=== PATIENT | male | born 1945 | race Caucasian/White ===

== ENCOUNTER 2022-10-22 07:00 | Outpatient (CLI) | payer MEDICARE, BC ==
--- NOTE | 2022-10-22 12:58 | XRAY Report ---
PROCEDURE: Chest 2 View X-Ray INDICATIONS: COVID+ TECHNIQUE: 2 views of the chest were acquired. COMPARISON: None. FINDINGS: Surgical changes and devices: Partially seen left humeral hardware. Lungs and pleura: Mild peribronchial thickening. No airspace consolidation or pleural effusion. Mediastinum: Mediastinal contours appear normal. Heart size is normal. Bones and chest wall: No suspicious bony lesions. Overlying soft tissues appear unremarkable. IMPRESSION: Mild peribronchial thickening, possibly atypical infection. No airspace consolidation. No pleural eff usions. Consider future imaging surveillance to assess for resolution. Reviewed by: Smith Zarate MD on 10/22/2022 12:57 PM PDT Approved by: Smith Zarate MD on 10/22/2022 12:57 PM PDT Station ID: [id number]
[2022-10-22 14:48] LABS: BASOPHILS % (AUTO) 0.4 %; EOSINOPHILS % (AUTO) 0.3 %; HCT - HEMATOCRIT 42.5 % (42.0-52.0); HGB - HEMOGLOBIN 13.4 g/dL (14.0-18.0); LYMPHOCYTES # (AUTO) 0.3 10^3/uL (1.5-3.5); LYMPHOCYTES % (AUTO) 4.6 %; MEAN CORPUSCULAR HEMOGLOBIN 29.9 pg (27.0-31.0); MEAN CORPUSCULAR HGB CONC 31.5 g/dL (32.0-36.0); MEAN CORPUSCULAR VOLUME 94.9 fL (80.0-94.0); MEAN PLATELET VOLUME 10.1 fL (7.4-11.4); MONOCYTES # (AUTO) 1.4 10^3/uL (0.0-1.0); MONOCYTES % (AUTO) 19.5 %; NEUTROPHILS # (AUTO) 5.4 10^3/uL (1.5-6.6); NEUTROPHILS % (AUTO) 74.1 %; PLT - PLATELET COUNT 199 10^3/uL (130-450); RED BLOOD COUNT 4.48 10^6/uL (4.70-6.10); RED CELL DISTRIBUTION WIDTH 13.7 % (12.0-15.0); WHITE BLOOD COUNT 7.2 x10^3/uL (4.8-10.8)
[2022-10-22 15:15] LABS: ALBUMIN 4.2 g/dL (3.2-5.5); ALBUMIN/GLOBULIN RATIO 1.5 (1.0-2.2); BILIRUBIN,TOTAL 0.6 mg/dL (0.2-1.0); CALCIUM 9.4 mg/dL (8.5-10.3); POTASSIUM 3.6 mmol/L (3.5-4.5)
== END 2022-10-22 23:59 | disposition home or self-care (01) ==
LOC: DI.S 07:00
PROVIDERS: ATTEND Physician Assistant
DX: U07.1 COVID-19 (principal)
CPT/HCPCS: 36415; 80053; 85025

== ENCOUNTER 2022-10-28 00:21 | Emergency (ER) | payer MEDICARE, BC ==
[2022-10-28] MEDS ORDERED: SODIUM CHLORIDE 0.9% 500 ML IV STA (00:31)
--- OUTSIDE RECORDS SUMMARY | 2022-10-28 00:50 | EXTERNAL MEDICAL SUMMARY RPT | Continuity of Care Document ---
Author Name Unknown Address [address] [place] [address] Phone Organization [facility] Address [address] [place] [address] Phone Care Team Providers Care Muck Farmer Name Role Phone Unavailable Unavailable Unavailable Anita Chance Unavailable Unavailable Supa Patient Registrar, Yamilka Unavailable Unavailable Stas Canseco, Ale Unavailable Unavailable Medications date description facility 2022-10-22 00:00 nirmatrelvir[facility]ritonavir [facility] 2022-10-22 00:00 nirmatrelvir-ritonavir [facility] 2022-10-22 00:00 nirmatrelvir-ritonavir [facility] 2022-10-22 00:00 famotidine [facility] 2022-10-22 00:00 famotidine [facility] 2022-10-23 00:00 famotidine [facility] 2022-10-25 00:00 famotidine [facility] 2022-10-22 00:00 tamsulosin [facility] 2022-10-22 00:00 tamsulosin [facility] 2022-10-23 00:00 tamsulosin [facility] 2022-10-25 00:00 tamsulosin [facility] 2022-10-22 00:00 levetiracetam [facility] 2022-10-22 00:00 levetiracetam [facility] 2022-10-23 00:00 levetiracetam [facility] 2022-10-25 00:00 levetiracetam [facility] 2022-10-22 00:00 levothyroxine [facility] 2022-10-22 00:00 levothyroxine [facility] 2022-10-23 00:00 levothyroxine [facility] 2022-10-25 00:00 levothyroxine [facility] 2022-10-22 00:00 azithromycin [facility] 2022-10-22 00:00 azithromycin [facility] 2022-10-22 00:00 azithromycin [facility] 2022-10-22 00:00 calcium carbonate-vitamin d3 [facility] 2022-10-22 00:00 calcium carbonate-vitamin d3 [facility] 2022-10-23 00:00 calcium carbonate-vitamin d3 [facility] 2022-10-25 00:00 calcium carbonate-vitamin d3 [facility] 2022-10-22 00:00 levothyroxine [facility] 2022-10-22 00:00 levothyroxine [facility] 2022-10-23 00:00 levothyroxine [facility] 2022-10-25 00:00 levothyroxine [facility] 2022-10-22 00:00 nirmatrelvir-ritonavir [facility] 2022-10-22 00:00 nirmatrelvir-ritonavir [facility] 2022-10-22 00:00 nirmatrelvir-ritonavir [facility] 2022-10-22 00:00 lacosamide [facility] 2022-10-22 00:00 lacosamide [facility] 2022-10-23 00:00 lacosamide [facility] 2022-10-25 00:00 lacosamide [facility] 2022-10-22 00:00 tamsulosin [facility] 2022-10-22 00:00 tamsulosin [facility] 2022-10-23 00:00 tamsulosin [facility] 2022-10-25 00:00 tamsulosin [facility] 2022-10-22 00:00 CEFTRIAXONE SODIUM [facility] 2022-10-22 00:00 CEFTRIAXONE SODIUM [facility] 2022-10-22 00:00 CEFTRIAXONE SODIUM [facility] 2022-10-22 00:00 nirmatrelvir-ritonavir [facility] 2022-10-22 00:00 nirmatrelvir-ritonavir [facility] 2022-10-22 00:00 nirmatrelvir-ritonavir [facility] 2022-10-22 00:00 calcium carbonate-vitamin d3 [facility] 2022-10-22 00:00 calcium carbonate-vitamin d3 [facility] 2022-10-23 00:00 calcium carbonate-vitamin d3 [facility] 2022-10-25 00:00 calcium carbonate-vitamin d3 [facility] 2022-10-22 00:00 nirmatrelvir-ritonavir [facility] 2022-10-22 00:00 nirmatrelvir-ritonavir [facility] 2022-10-22 00:00 nirmatrelvir-ritonavir [facility] 2022-10-22 00:00 famotidine [facility] 2022-10-22 00:00 famotidine [facility] 2022-10-23 00:00 famotidine [facility] 2022-10-25 00:00 famotidine [facility] 2022-10-22 00:00 lacosamide [facility] 2022-10-22 00:00 lacosamide [facility] 2022-10-23 00:00 lacosamide [facility] 2022-10-25 00:00 lacosamide [facility] 2022-10-22 00:00 levothyroxine [facility] 2022-10-22 00:00 levothyroxine [facility] 2022-10-23 00:00 levothyroxine [facility] 2022-10-25 00:00 levothyroxine [facility] 2022-10-22 00:00 azithromycin [facility] 2022-10-22 00:00 azithromycin [facility] 2022-10-22 00:00 azithromycin [facility] 2022-10-22 00:00 famotidine [facility] 2022-10-22 00:00 famotidine [facility] 2022-10-23 00:00 famotidine [facility] 2022-10-25 00:00 famotidine [facility] 2022-10-22 00:00 levetiracetam [facility] 2022-10-22 00:00 levetiracetam [facility] 2022-10-23 00:00 levetiracetam [facility] 2022-10-25 00:00 levetiracetam [facility] 2022-10-22 00:00 pantoprazole [facility] 2022-10-22 00:00 pantoprazole [facility] 2022-10-23 00:00 pantoprazole [facility] 2022-10-25 00:00 pantoprazole [facility] 2022-10-22 00:00 famotidine [facility] 2022-10-22 00:00 famotidine [facility] 2022-10-23 00:00 famotidine [facility] 2022-10-25 00:00 famotidine [facility] 2022-10-22 00:00 pantoprazole [facility] 2022-10-22 00:00 pantoprazole [facility] 2022-10-23 00:00 pantoprazole [facility] 2022-10-25 00:00 pantoprazole [facility] 2022-10-22 00:00 azithromycin [facility] 2022-10-22 00:00 azithromycin [facility] 2022-10-22 00:00 azithromycin [facility] 2022-10-22 00:00 pantoprazole [facility] 2022-10-22 00:00 pantoprazole [facility] 2022-10-23 00:00 pantoprazole [facility] 2022-10-25 00:00 pantoprazole [facility] 2022-10-22 00:00 tamsulosin [facility] 2022-10-22 00:00 tamsulosin [facility] 2022-10-23 00:00 tamsulosin [facility] 2022-10-25 00:00 tamsulosin [facility] 2022-10-22 00:00 azithromycin [facility] 2022-10-22 00:00 azithromycin [facility] 2022-10-22 00:00 azithromycin [facility] 2022-10-22 00:00 pantoprazole [facility] 2022-10-22 00:00 pantoprazole [facility] 2022-10-23 00:00 pantoprazole [facility] 2022-10-25 00:00 pantoprazole [facility] 2022-10-22 00:00 levetiracetam [facility] 2022-10-22 00:00 levetiracetam [facility] 2022-10-23 00:00 levetiracetam [facility] 2022-10-25 00:00 levetiracetam [facility] 2022-10-22 00:00 lacosamide [facility] 2022-10-22 00:00 lacosamide [facility] 2022-10-23 00:00 lacosamide [facility] 2022-10-25 00:00 lacosamide [facility] 2022-10-22 00:00 levetiracetam [facility] 2022-10-22 00:00 levetiracetam [facility] 2022-10-23 00:00 levetiracetam [facility] 2022-10-25 00:00 levetiracetam [facility] 2022-10-22 00:00 calcium carbonate-vitamin d3 [facility] 2022-10-22 00:00 calcium carbonate-vitamin d3 [facility] 2022-10-23 00:00 calcium carbonate-vitamin d3 [facility] 2022-10-25 00:00 calcium carbonate-vitamin d3 [facility] 2022-10-22 00:00 lacosamide [facility] 2022-10-22 00:00 lacosamide [facility] 2022-10-23 00:00 lacosamide [facility] 2022-10-25 00:00 lacosamide [facility] 2022-10-22 00:00 tamsulosin [facility] 2022-10-22 00:00 tamsulosin [facility] 2022-10-23 00:00 tamsulosin [facility] 2022-10-25 00:00 tamsulosin [facility] 2022-10-22 00:00 levothyroxine [facility] 2022-10-22 00:00 levothyroxine [facility] 2022-10-23 00:00 levothyroxine [facility] 2022-10-25 00:00 levothyroxine [facility] Problems date description facility 2022-10-22 00:00 Other specified viral infection [facility] 2022-10-22 00:00 Other specified viral infection [facility] 2022-10-22 00:00 Other specified viral infection [facility] 2022-10-22 00:00 Atypical pneumonia [facility] 2022-10-22 00:00 Atypical pneumonia [facility] 2022-10-22 00:00 Atypical pneumonia [facility] 2022-10-22 00:00 Cough [facility] 2022-10-22 00:00 Cough [facility] 2022-10-22 00:00 Cough [facility] 2022-10-22 00:00 Pneumonia, unspecified organism [facility] 2022-10-22 00:00 Pneumonia, unspecified organism [facility] 2022-10-22 00:00 Pneumonia, unspecified organism [facility] 2022-10-22 00:00 Acute cough [facility] 2022-10-22 00:00 Acute cough [facility] 2022-10-22 00:00 Acute cough [facility] 2022-10-22 00:00 COVID-19 [facility] 2022-10-22 00:00 COVID-19 [facility] 2022-10-22 00:00 COVID-19 [facility] Procedures date description facility 2022-10-22 00:00 Visit Code Hold [facility] 2022-10-22 00:00 Visit Code Hold [facility] 2022-10-22 00:00 Visit Code Hold [facility] 2022-10-22 00:00 COMPREHENSIVE METABOLIC PANEL W [facility] 2022-10-22 00:00 COMPREHENSIVE METABOLIC PANEL [facility] 2022-10-22 00:00 COMPREHENSIVE METABOLIC PANEL [facility] 2022-10-22 00:00 CBC W/Diff/Plt [facility] 2022-10-22 00:00 CBC W/Diff/Plt [facility] 2022-10-22 00:00 CBC W/Diff/Plt [facility] 2022-10-22 00:00 Rocephin 1gm Inj Solr [facility] 2022-10-22 00:00 Rocephin 1gm Inj Solr [facility] 2022-10-22 00:00 Rocephin 1gm Inj Solr [facility] Results/Labs test date facility value unit notes Social History date description facility 2022-10-22 00:00 Never smoker [facility] 2022-10-22 00:00 Never smoker [facility] 2022-10-22 00:00 Never smoker [facility] Vital Signs date measurement value units 2022-10-22 00:00 BMI 27.57 kg/m2 2022-10-22 00:00 BP_diastolic 67 mmHg 2022-10-22 00:00 BP_systolic 116 mmHg 2022-10-22 00:00 heart_rate 74 /min 2022-10-22 00:00 height_metric 190.5 cm 2022-10-22 00:00 height_standard 75 in 2022-10-22 00:00 respiration_rate 18 /min 2022-10-22 00:00 temperature_metric 37.72 C 2022-10-22 00:00 temperature_standard 99.9 F 2022-10-22 00:00 weight_metric 99.7 kg 2022-10-22 00:00 weight_standard 219.8 lb
[2022-10-28 00:55] LABS: BASOPHILS % (AUTO) 0.2 %; EOSINOPHILS % (AUTO) 0.5 %; HCT - HEMATOCRIT 41.6 % (42.0-52.0); HGB - HEMOGLOBIN 13.5 g/dL (14.0-18.0); LYMPHOCYTES # (AUTO) 1.2 10^3/uL (1.5-3.5); LYMPHOCYTES % (AUTO) 21.5 %; MEAN CORPUSCULAR HEMOGLOBIN 30.1 pg (27.0-31.0); MEAN CORPUSCULAR HGB CONC 32.5 g/dL (32.0-36.0); MEAN CORPUSCULAR VOLUME 92.7 fL (80.0-94.0); MEAN PLATELET VOLUME 9.2 fL (7.4-11.4); MONOCYTES # (AUTO) 0.8 10^3/uL (0.0-1.0); MONOCYTES % (AUTO) 13.2 %; NEUTROPHILS # (AUTO) 3.7 10^3/uL (1.5-6.6); NEUTROPHILS % (AUTO) 63.6 %; PLT - PLATELET COUNT 145 10^3/uL (130-450); RED BLOOD COUNT 4.49 10^6/uL (4.70-6.10); WHITE BLOOD COUNT 5.8 x10^3/uL (4.8-10.8)
[2022-10-28 01:09] LABS: ALBUMIN/GLOBULIN RATIO 1.5 (1.0-2.2); BILIRUBIN,TOTAL 0.4 mg/dL (0.2-1.0); CREATININE 1.1 mg/dL (0.6-1.3); POTASSIUM 3.6 mmol/L (3.5-4.5); TOTAL PROTEIN 6.6 g/dL (6.4-8.9)
[2022-10-28 01:21] LABS: BILIRUBIN,URINE NEGATIVE (NEGATIVE); GLUCOSE, URINE (UA) NEGATIVE (NEGATIVE); KETONES,URINE (UA) TRACE mg/dL (NEGATIVE); LEUKOCYTE ESTERASE, URINE TRACE (NEGATIVE); NITRITE,URINE NEGATIVE (NEGATIVE); OCCULT BLOOD,URINE TRACE-INTA (NEGATIVE); PROTEIN,URINE 30 mg/dL (NEGATIVE); UROBILINOGEN,URINE 0.2 (NORMAL) E.U./dL (NORMAL)
[2022-10-28 01:22] LABS: CLARITY,URINE CLEAR (CLEAR)
[2022-10-28 01:29] LABS: BACTERIA,URINE Rare /HPF (None Seen); MUCUS,URINE Few Strands; RBC,URINE 0-5 /HPF (0-5); SQUAMOUS EPITHELIAL CELL,UR RARE Squamous (<= Few); WBC,URINE 0-3 /HPF (0-3)
[2022-10-28 01:30] LABS: CASTS, URINE 0-2 Hyaline Casts /LPF
[2022-10-28 02:01] VITALS: BP 155/81; O2SAT 93
--- NOTE | 2022-10-28 02:05 | ED Physician Documentation ---
History of Present Illness - Stated complaint Stated Complaint: DIARRHEA,NOT FEELING WELL - Chief complaint Chief Complaint: Abd Pain - History obtained from History obtained from: Patient, Family () - Additonal information Additional information: 76yM with pmh RA, uti, p/w weakness X few days with diarrhea yesterday that is yellowish and mucoid consistency. patient had covid-19 last week and also was dx with pneumonia and given amoxicillin antibiotic per their report. denies fever and cough. denies n/v abd pain or urinary sx. denies back pain. PD PAST MEDICAL HISTORY - Present Medications Home Medications: Ambulatory Orders Medication Instructions Recorded Confirmed Calcium Carbonate [Calcium] 600 mg PO DAILY 10/28/22 10/28/22 Cefpodoxime Proxetil [Vantin] 200 mg PO Q12H #28 tablet 10/28/22 Famotidine [Pepcid] 20 mg PO BID 10/28/22 10/28/22 Lacosamide 200 mg PO BID 10/28/22 10/28/22 Levothyroxine [Synthroid] 75 mcg PO DAILY 10/28/22 10/28/22 Pantoprazole Sodium 40 mg PO DAILY 10/28/22 10/28/22 Tamsulosin HCl [Flomax] 2 cap PO DAILY 10/28/22 10/28/22 levETIRAcetam [Elepsia Xr] 1,500 mg PO BID 10/28/22 10/28/22 - Allergies Allergies/Adverse Reactions: Allergies Allergy/AdvReac Type Severity Reaction Status Date / Time No Known Drug Allergies Allergy Verified 10/28/22 00:32 PD ED PE NORMAL - Vitals Vital signs reviewed: Yes - General General: Alert and oriented X 3, No acute distress, Well developed/nourished - HEENT HEENT: Atraumatic, PERRL, EOMI, Moist mucous membranes, Pharynx benign - Neck Neck: Supple, no meningeal sign - Cardiac Cardiac: RRR - Respiratory Respiratory: No respiratory distress, Clear bilaterally - Abdomen Abdomen: Non tender, Non distended, Other (suprapubic discomfort to palpation) - Back Back: No CVA TTP - Neuro Neuro: Alert and oriented X 3, No motor deficit, No sensory deficit Results - Vitals Vitals: Vital Signs - 24 hr 10/28/22 10/28/22 10/28/22 00:28 01:30 01:40 Temperature 36.2 C L Heart Rate 72 72 85 Respiratory 16 18 18 Rate Blood Pressure 133/59 H 128/61 155/81 H O2 Saturation 95 94 93 Oxygen O2 Source Room air - Labs Labs: Laboratory Tests 10/28/22 10/28/22 10/28/22 00:52 00:52 01:00 WBC 5.8 RBC 4.49 L Hgb 13.5 L Hct 41.6 L MCV 92.7 MCH 30.1 MCHC 32.5 RDW 14.0 Plt Count 145 MPV 9.2 Neut # (Auto) 3.7 Lymph # (Auto) 1.2 L [place] # (Auto) 0.8 Eos # (Auto) 0.0 Baso # (Auto) 0.0 Absolute Nucleated RBC 0.00 Nucleated RBC % 0.0 Sodium 140 Potassium 3.6 Chloride 104 Carbon Dioxide 30 Anion Gap 6.0 BUN 13 Creatinine 1.1 Estimated GFR (MDRD) 65 L Glucose 132 H Calcium 9.0 Total Bilirubin 0.4 AST 26 ALT 27 Alkaline Phosphatase 76 Total Protein 6.6 Albumin 4.0 Globulin 2.6 Albumin/Globulin Ratio 1.5 Lipase 29 Urine Color YELLOW Urine Clarity CLEAR Urine pH 6.0 Ur Specific [place] 1.020 Urine Protein 30 H Urine Glucose (UA) NEGATIVE Urine Ketones TRACE Urine Occult Blood TRACE-INTA Urine Nitrite NEGATIVE Urine Bilirubin NEGATIVE Urine Urobilinogen 0.2 (NORMAL) Ur Leukocyte Esterase TRACE H Urine RBC 0-5 Urine WBC 0-3 Ur Squamous Epith Cells RARE Squamous Urine Bacteria Rare Urine Casts 0-2 Hyaline Casts Urine Mucus Few Strands Ur Microscopic Review INDICATED Urine Culture Comments INDICATED PD Medical Decision Making - ED course ED course: 76yM with recent covid diagnosis last week , now improved, p/w diarrhea for past couple days and accompanying weakness. patient is well appearing, appears well hydrated with moist MM. cbc, abdominal panel, u/a performed and were benign except for borderline anemia and u/a showed +leuk est concerning for uti. patient does have some suprapubic discomfort to palpation so plan is for antibiotics and f/u with pcp for referral to urology. return precautions given. Departure - Departure Disposition: 01 Home, Self Care Clinical Impression: UTI (urinary tract infection), Weak Instructions: ED UTI Cystitis Male Prescriptions: Cefpodoxime Proxetil [Vantin] 200 mg PO Q12H #28 tablet Comments: You were seen in the emergency department for Weakness and found to have urinary tract infection. Antibiotic prescription for Vantin was sent electronically to [facility] in [place]. He will need to take the medication on a full stomach twice daily. Please follow-up with your primary care provider and return to the emergency department if you have any new or worsening symptoms or other concerns.
== END 2022-10-28 02:20 | disposition home or self-care (01) ==
LOC: ED 00:21
DX: N39.0 Urinary tract infection, site not specified (principal); R53.1 Weakness; Z79.899 Other long term (current) drug therapy
CPT/HCPCS: 36415; 80053; 81001; 81003; 83690; 85025; 87086; 96360; 99283